=== PATIENT | female | born 1995 | race African-American/Black ===

== ENCOUNTER 2021-06-19 09:08 | Emergency (ER) | payer OTHER, SELFPAY | END 2021-06-19 10:44 | disposition home or self-care (01) | LOC: BURERS 09:08 | DX: S93.402A Sprain of unspecified ligament of left ankle, initial encounter (principal); I10 Essential (primary) hypertension; X50.1XXA Overexertion from prolonged static or awkward postures, initial encounter ==

== ENCOUNTER 2022-03-04 18:04 | Emergency (ER) | payer SELFPAY ==
[2022-03-04] MEDS ORDERED: Ondansetron ODT 4 MG TAB ONE (18:53)
== END 2022-03-04 19:44 | disposition home or self-care (01) ==
LOC: BURERS 18:04
DX: J10.1 Influenza due to other identified influenza virus with other respiratory manifestations (principal); Z20.822 Contact with and (suspected) exposure to COVID-19
CPT/HCPCS: 87081; 87430; 87804; 99283; Q0162; U0003; U0005

== ENCOUNTER 2022-03-10 19:59 | Emergency (ER) | payer SELFPAY | END 2022-03-10 20:35 | disposition home or self-care (01) | LOC: BURERS 19:59 | DX: J02.9 Acute pharyngitis, unspecified (principal) | CPT/HCPCS: 87081; 87430; 99283 ==

== ENCOUNTER 2022-04-20 12:14 | Emergency (ER) | payer SELFPAY ==
[2022-04-20] MEDS ORDERED: Ibuprofen 800 MG TAB ONE (12:36)
== END 2022-04-20 13:14 | disposition home or self-care (01) ==
LOC: BURERS 12:14
DX: B34.9 Viral infection, unspecified (principal)
CPT/HCPCS: 87804; 99283

== ENCOUNTER 2022-04-29 22:07 | Emergency (ER) | payer OTHER, SELFPAY ==
[2022-04-29] MEDS ORDERED: HYDROcodone/Acetaminophen 5/325 mg Tablet ONE (22:26)
== END 2022-04-29 23:38 | disposition home or self-care (01) ==
LOC: BURERS 22:07
DX: S93.402A Sprain of unspecified ligament of left ankle, initial encounter (principal); X50.1XXA Overexertion from prolonged static or awkward postures, initial encounter

== ENCOUNTER 2022-06-22 08:33 | Emergency (ER) | payer SELFPAY ==
[2022-06-22 09:04] LABS: Hemoglobin 13.7 g/dL (12.0-16.0); Mean Corpuscular HGB CONC 31.4 g/dL (32.0-36.0); Mean Corpuscular Hemoglobin 28.4 pg (27.0-31.0); Mean Corpuscular Volume 90.4 fl (78.0-98.0); Mean Platelet Volume 6.3 fL (7.4-10.4); Platelet Count 184 10x3/uL (130-400); RBC Distribution Width 13.6 % (11.5-14.5); Red Blood Cell (RBC) Count 4.83 mill/uL (4.20-5.40); White Blood Cell (WBC) Count 4.4 10x3/uL (4.8-10.8)
[2022-06-22] MEDS ORDERED: Ibuprofen 200 MG TAB ONE (09:04)
[2022-06-22 09:20] LABS: Anion Gap 10 mmol/L (10-20); BUN (Urea Nitrogen) 8 mg/dL (7.0-18.7); Calc. Creatinine Clearance 0 mL/min (70-130); Calcium 9.1 mg/dL (7.8-10.44); Carbon Dioxide 21 mmol/L (22-29); Chloride 113 mmol/L (98-107); Estimated GFR 86; Glucose 90 mg/dL (70-105); Magnesium 1.7 mg/dL (1.6-2.6); Potassium 4.6 mmol/L (3.5-5.1); Sodium 139 mmol/L (136-145)
[2022-06-22 09:32] LABS: Eosinophils 4 % (0-10); Lymphocytes 58 % (21-51); MDiff Complete? YES; Monocytes 5 % (0-10); Neutrophil 32 % (42-75); Platelet Morphology Comment Appears Adequate; RBC Morphology Within Normal Limits
[2022-06-22 10:12] LABS: Bilirubin Negative (Negative); Blood, Urine Trace (Negative); Glucose, Urine (Dipstick) Negative (Negative); Ketone, Urine Negative (Negative); Leukocyte Trace (Negative); Nitrite Negative (Negative); Protein, Urine (Dipstick) Negative (Neg-Trace); Urobilinogen 0.2 mg/dL (Less than 2); pH, Urine 5.5 (5.0-9.0)
[2022-06-22 10:16] LABS: Clarity Cloudy (Clear); Specific Gravity, Urine 1.023 (1.002-1.036)
[2022-06-22 10:17] LABS: Pregnancy Test - Urine (BHCG) Negative (Negative); Pregu Control Background? CLEAR/WHITE (CLR/WHITE); Pregu Control Bar Appear? YES (CONTROL BAR); Specific Gravity 1.023 (1.002-1.036)
[2022-06-22 10:20] LABS: Bacteria/HPF 2+ HPF (None Seen); RBC/HPF 0-3 HPF (0-3); Squamous Epithelial 0-3 HPF (0-3)
== END 2022-06-22 11:14 | disposition home or self-care (01) ==
LOC: BURERS 08:33
DX: R07.89 Other chest pain (principal); N39.0 Urinary tract infection, site not specified
CPT/HCPCS: 71045; 80048; 81003; 81015; 81025; 83605; 83735; 83880; 84443; 84484; 85025; 87086; 93005

== ENCOUNTER 2022-06-24 06:29 | Emergency (ER) | payer SELFPAY ==
[2022-06-24] MEDS ORDERED: Ibuprofen 200 MG TAB ONE (07:02)
[2022-06-24] MEDS ORDERED: Loperamide HCl 2 MG CAP PO SCH (07:15)
== END 2022-06-24 07:17 | disposition home or self-care (01) ==
LOC: BURERS 06:29
DX: N39.0 Urinary tract infection, site not specified (principal); R19.7 Diarrhea, unspecified
CPT/HCPCS: 99284